=== PATIENT | female | born 1950 | race Caucasian/White ===

== ENCOUNTER → 2018-02-01 | Outpatient (CLI) | payer MEDICARE, OTHER | LOC: M WHC 09:51 | DX: Z12.31 Encounter for screening mammogram for malignant neoplasm of breast (principal); R92.8 Other abnormal and inconclusive findings on diagnostic imaging of breast; Z78.0 Asymptomatic menopausal state; Z85.3 Personal history of malignant neoplasm of breast; Z98.890 Other specified postprocedural states; Z92.3 Personal history of irradiation | CPT/HCPCS: 77067 ==

== ENCOUNTER → 2018-02-01 | Outpatient (REF) | payer MEDICARE, OTHER ==
[2018-02-03 14:09] LABS: HPV HYBRID CAPTURE II Negative (Negative)
== END ==
LOC: M SFHCWAGY 09:54
DX: Z12.4 Encounter for screening for malignant neoplasm of cervix (principal)
CPT/HCPCS: G0123

== ENCOUNTER 2018-05-25 08:44 | Day surgery (SDC) | payer MEDICARE, OTHER ==
[2018-05-25] MEDS: NS 1,000 ML IV (09:14)
[2018-05-25] MEDS ORDERED: LIDOCAINE 2% INJ 100 MG/5 ML SDV (FOR ANES.) As Ordered (09:17)
[2018-05-25] MEDS ORDERED: PROPOFOL 200 MG/20 ML VIAL As Ordered ×2 (09:29→09:52)
== END 2018-05-25 10:20 | disposition home or self-care (01) ==
LOC: M OPP 08:44
DX: Z12.11 Encounter for screening for malignant neoplasm of colon (principal); K57.30 Diverticulosis of large intestine without perforation or abscess without bleeding; Z85.3 Personal history of malignant neoplasm of breast; Z92.3 Personal history of irradiation
CPT/HCPCS: G0121

== ENCOUNTER → 2019-02-19 | Outpatient (CLI) | payer MEDICARE, OTHER ==
[~2019-02-19] MED LIST: MULTCAP8 PO
--- NOTE | 2019-02-19 15:28 | REPMRS ---
Patient History The patient states she had a clinical breast exam in 02/2019. Patient is postmenopausal, has history of cancer in the right breast at age 51, and had previous chest radiation therapy at age 51. No known family history of cancer. Malignant excisional biopsy of the right breast, 2001. Radiation therapy of the right breast, 2001. No Hormone Replacement Therapy 3D TOMOSYNTHESIS WAS PERFORMED. Digital Woman Screen Mammo: February 19, 2019 - Exam #: [id number] Bilateral CC and MLO view(s) were taken. Technologist: Tosha Rivas, Technologist Prior study comparison: February 01, 2018, digital woman screen mammo performed at [facility]. June 20, 2012, digital woman screen mammo performed at [facility]. FINDINGS: The breast tissue is heterogeneously dense. This may lower the sensitivity of mammography. There has been no change in the appearance of the mammogram from the prior studies. There is a moderate amount of residual fibroglandular tissue which is fairly symmetric. There is no interval development of dominant mass, areas of architectural distortion, or clustered microcalcification typical of malignancy. Assessment: BI-RADS/ACR category 1 mammogram. Negative Mammogram. Recommendation Routine screening mammogram in 1 year (for women over age 40). This mammogram was interpreted with the aid of an FDA-approved computer-aided dectection system. Electronically Signed By: Sarthak Alvarado MD 02/19/19 1523
== END ==
LOC: M WHC 11:58
PROVIDERS: ATTEND Nurse Practitioner Women's Health
DX: Z12.31 Encounter for screening mammogram for malignant neoplasm of breast (principal); Z78.0 Asymptomatic menopausal state; Z92.3 Personal history of irradiation; Z85.3 Personal history of malignant neoplasm of breast
CPT/HCPCS: 77063; 77067; G0463

== ENCOUNTER → 2020-02-21 | Outpatient (REF) | payer MEDICARE, OTHER | LOC: M SFHCWAGY 17:57 | PROVIDERS: ATTEND Nurse Practitioner Women's Health | DX: Z12.4 Encounter for screening for malignant neoplasm of cervix (principal); N95.8 Other specified menopausal and perimenopausal disorders ==

== ENCOUNTER → 2020-02-21 | Outpatient (CLI) | payer MEDICARE, OTHER ==
--- NOTE | 2020-02-21 13:31 | REPMRS ---
Patient History The patient states she had a clinical breast exam in February 2020. No known family history of cancer. Malignant excisional biopsy of the right breast, 2001. Radiation therapy of the right breast, 2001. No Hormone Replacement Therapy Digital Woman Screen Mammo: February 21, 2020 - Exam #: [id number] Bilateral CC and MLO view(s) were taken. Technologist: Karolyn Maxwell, Technologist Prior study comparison: February 19, 2019, bilateral digital woman screen mammo performed at [facility]. February 01, 2018, digital woman screen mammo performed at [facility]. June 20, 2012, digital woman screen mammo performed at [facility]. FINDINGS: The breast tissue is heterogeneously dense. This may lower the sensitivity of mammography. The Volpara volumetric breast density category is: C. Stable post-treatment changes are again noted on the right. There is a moderate amount of heterogeneously dense fibroglandular tissue which is fairly symmetric. There is no interval development of dominant mass, architectural distortion, or grouped microcalcification typical of malignancy. There has been no change in the appearance of the mammogram from the prior studies. 3-D tomosynthesis shows no additional findings. Assessment: BI-RADS/ACR category 2 mammogram. Benign Findings. Recommendation Routine screening mammogram of both breasts in 1 year (for women over age 40). This mammogram was interpreted with the aid of an FDA-approved computer-aided dectection system. Electronically Signed By: Bruno Elizondo MD 02/21/20 8757
== END ==
LOC: M WHC 11:12
PROVIDERS: ATTEND Nurse Practitioner Women's Health
DX: Z01.419 Encounter for gynecological examination (general) (routine) without abnormal findings (principal); Z12.31 Encounter for screening mammogram for malignant neoplasm of breast; Z85.3 Personal history of malignant neoplasm of breast; Z92.3 Personal history of irradiation
CPT/HCPCS: 77063; 77067; G0101; G0123

== ENCOUNTER → 2021-03-01 | Outpatient (CLI) | payer MEDICARE, OTHER ==
--- NOTE | 2021-03-01 17:07 | REPMRS ---
Patient History The patient states she had a clinical breast exam on 03-01-2021. No known family history of cancer. Malignant excisional biopsy of the right breast, 2001. Radiation therapy of the right breast, 2001. No Hormone Replacement Therapy Patient states no breast complaints today. Patient has signed MRS History Sheet. Digital Woman Screen Mammo: March 01, 2021 - Exam #: [id number] Bilateral CC and MLO view(s) were taken. Technologist: Alejandra Serrato, Railroader Prior study comparison: February 21, 2020, bilateral digital woman screen mammo performed at [facility]. February 19, 2019, bilateral digital woman screen mammo performed at [facility]. February 01, 2018, digital woman screen mammo performed at [facility]. FINDINGS: The breast tissue is heterogeneously dense. This may lower the sensitivity of mammography. The Volpara volumetric breast density category is: C. There are stable post treatment changes in the right breast unchanged. There is a moderate amount of heterogeneously dense fibroglandular tissue which is fairly symmetric. There is no interval development of dominant mass, architectural distortion, or grouped microcalcification typical of malignancy. There has been no change in the appearance of the mammogram from the prior studies. 3-D tomosynthesis shows no additional findings. Assessment: BI-RADS/ACR category 2 mammogram. Benign Findings. Recommendation Routine screening mammogram of both breasts in 1 year (for women over age 40). This mammogram was interpreted with the aid of an FDA-approved computer-aided dectection system. Electronically Signed By: Bruno Elizondo MD 03/01/21 5015
== END ==
LOC: M WHC 15:58
PROVIDERS: ATTEND Nurse Practitioner Women's Health
DX: Z01.419 Encounter for gynecological examination (general) (routine) without abnormal findings (principal); Z12.31 Encounter for screening mammogram for malignant neoplasm of breast; Z85.3 Personal history of malignant neoplasm of breast; Z92.3 Personal history of irradiation
CPT/HCPCS: 77063; 77067; G0101

== ENCOUNTER → 2021-03-24 | Outpatient (CLI) | payer MEDICARE ==
--- NOTE | 2021-03-25 06:16 | REP ---
INDICATION: N83.8 OVARIAN ENLARGEMENT,RIGHT COMPARISON: None. TECHNIQUE: Transabdominal pelvic ultrasound followed by transvaginal examination for better evaluation of the endometrium and adnexa with color Doppler evaluation of the ovaries. FINDINGS: Bladder is unremarkable and measures 4.5 x 5.4 x 5.6 cm. Normal anteverted uterus measures 5.5 x 2.2 x 3.2 cm. The endometrial complex measures 2.8 mm thickness excluding a small amount of endocervical fluid. Left ovary is not visualized. The right ovary measures 9.1 x 5.8 x 5.5 cm (RI 0.51) and includes a complex heterogeneous lesion measuring 9.1 x 4.5 x 5.4 cm with presumed internal calcification and cystic components raising the possibility of teratoma. IMPRESSION: 1. Essentially normal uterus. 2. Left ovary not visualized. 3. Complex lesion in the right ovary up to 9.1 cm may represent complex cyst or teratoma. Consider follow-up examination in 4-6 weeks and or contrast-enhanced CT of the abdomen and pelvis for further investigation. <Electronically signed by Brandan Molina > 03/25/21 0618
== END ==
LOC: M WHC 07:24
PROVIDERS: ATTEND Nurse Practitioner Women's Health
DX: N83.8 Other noninflammatory disorders of ovary, fallopian tube and broad ligament (principal)

== ENCOUNTER → 2021-04-05 | Outpatient (REF) | payer MEDICARE, OTHER | LOC: M PLALAB 10:13 | PROVIDERS: ATTEND Nurse Practitioner Women's Health | DX: N83.201 Unspecified ovarian cyst, right side (principal) ==

== ENCOUNTER → 2021-05-21 | Outpatient (CLI) | payer MEDICARE, OTHER ==
[~2021-05-21] MED LIST changes: +MULTCHW14 PO
[2021-05-21 16:55] LABS: BASO % 0.6 % (0.0-1.0); EOS # 0.1 10^3/uL (0.0-0.5); EOS % 2.3 % (0.0-3.0); HEMATOCRIT 43.2 % (36.0-47.0); LYMPH # 1.5 10^3/uL (1.5-5.0); LYMPH % 32.1 % (24.0-44.0); MEAN CORPUSCULAR HEMOGLOBIN 31.8 pg (27.0-33.0); MEAN CORPUSCULAR HGB CONC 32.4 g/dl (32.0-36.5); MEAN CORPUSCULAR VOLUME 98.2 fl (80.0-96.0); MONO # 0.5 10^3/uL (0.0-0.8); MONO % 9.9 % (2.0-8.0); NEUTROPHILS # 2.6 10^3/uL (1.5-8.5); NEUTROPHILS % 54.7 % (36.0-66.0); PLATELET COUNT, AUTOMATED 103 10^3/uL (150-450); WHITE BLOOD COUNT 4.7 10^3/uL (4.0-10.0)
[2021-05-21 17:23] LABS: HEMOGLOBIN A1c 5.2 %
[2021-05-21 17:35] LABS: ALBUMIN 3.8 GM/DL (3.2-5.2); ALT/SGPT 113 U/L (12-78); BILIRUBIN,TOTAL 0.5 MG/DL (0.2-1.0); BLOOD UREA NITROGEN 13 MG/DL (7-18); CALCIUM LEVEL 8.9 MG/DL (8.8-10.2); CARBON DIOXIDE LEVEL 28 MEQ/L (21-32); CHLORIDE LEVEL 107 MEQ/L (98-107); CHOLESTEROL LEVEL 155 MG/DL (<200); CREATININE FOR GFR 0.77 MG/DL (0.55-1.30); GLOMERULAR FILTRATION RATE > 60.0 (>45); GLUCOSE, FASTING 92 MG/DL (70-100); HDL CHOLESTEROL 62 MG/DL (>40); LDL CHOLESTEROL 77 MG/DL (<100); NON-HDL-C 93 MG/DL; POTASSIUM SERUM 5.2 MEQ/L (3.5-5.1); SODIUM LEVEL 139 MEQ/L (136-145); THYROID STIMULATING HORMONE 0.514 uIU/ML (0.358-3.740); TOTAL PROTEIN 7.9 GM/DL (6.4-8.2); TRIGLYCERIDES LEVEL 81 MG/DL (<150)
== END ==
LOC: M PLALAB 14:48
PROVIDERS: ATTEND Family Medicine
DX: N83.209 Unspecified ovarian cyst, unspecified side (principal); Z13.220 Encounter for screening for lipoid disorders; Z13.228 Encounter for screening for other metabolic disorders; Z79.899 Other long term (current) drug therapy

== ENCOUNTER → 2021-05-24 | Outpatient (CLI) | payer MEDICARE, OTHER ==
[~2021-05-24] MED LIST changes: +OXYC1TAB23 PO
[2021-05-24 14:32] LABS: PROTHROMBIN TIME 13.6 SECONDS (12.7-14.5)
[2021-05-24 14:33] LABS: PARTIAL THROMBOPLASTIN TIME 30.4 SECONDS (25.9-37.0)
[2021-05-24 14:54] LABS: ALBUMIN 3.9 GM/DL (3.2-5.2); ALT/SGPT 112 U/L (12-78); BILIRUBIN,DIRECT 0.2 MG/DL (0.0-0.2); BILIRUBIN,TOTAL 0.6 MG/DL (0.2-1.0); CHOLESTEROL LEVEL 156 MG/DL (<200); CHOLESTEROL RISK RATIO 2.476 (<5); HDL CHOLESTEROL 63 MG/DL (>40); LDL CHOLESTEROL 72 MG/DL (<100); NON-HDL-C 93 MG/DL; TOTAL PROTEIN 7.9 GM/DL (6.4-8.2); TRIGLYCERIDES LEVEL 106 MG/DL (<150)
[2021-05-24 15:08] LABS: VITAMIN B12 LEVEL 542 PG/ML (247-911)
[2021-05-24 15:50] LABS: HEPATITIS C VIRUS ABY INDEX > 11.0 INDEX (<0.8)
[2021-05-25 12:03] LABS: ALBUMIN 4.18 GM/DL (3.29-5.55); ALBUMIN % 52.9 % (55.8-66.1); ALPHA-1-GLOBULIN % 3.5 % (2.9-4.9); BETA-1-GLOBULINS % 6.3 % (4.7-7.2); GAMMA GLOBULIN % 21.3 % (11.1-18.8)
[2021-05-25 12:04] LABS: ALPHA-1-GLOBULINS 0.28 GM/DL (0.17-0.41); ALPHA-2-GLOBULINS 0.95 GM/DL (0.42-0.99); BETA-2-GLOBULINS 0.32 GM/DL (0.19-0.55); GAMMA GLOBULINS 1.68 GM/DL (0.65-1.58)
[2021-05-27 20:16] LABS: ANA (HEP2) Negative (.)
== END ==
LOC: M PLALAB 11:20
PROVIDERS: ATTEND Family Medicine
DX: R74.01 Elevation of levels of liver transaminase levels (principal)

== ENCOUNTER → 2021-05-26 | Outpatient (CLI) | payer MEDICARE, OTHER ==
[~2021-05-26] MED LIST changes: -OXYC1TAB23 PO
== END ==
LOC: M LABSMTC 10:51
PROVIDERS: ATTEND Anesthesiology
DX: Z01.812 Encounter for preprocedural laboratory examination (principal); Z20.822 Contact with and (suspected) exposure to COVID-19

== ENCOUNTER 2021-05-31 06:15 | Day surgery (SDC) | payer MEDICARE ==
[~2021-05-31] VITALS: Ht 165.1 cm; Wt 68.5 kg
[~2021-05-31 06:15] MED LIST changes: +EMLA CREAM 5GM TUBE (LIDOCAINE/PRILOCAINE) TOP PRN; +LIDOCAINE 1% MDV 20ML VIAL SQ PRN; +LR 1,000 ML IV ONE
[2021-05-31 06:55] LABS: HEMATOCRIT 44.6 % (36.0-47.0); HEMOGLOBIN 14.3 g/dl (12.0-15.5); MEAN CORPUSCULAR HEMOGLOBIN 31.4 pg (27.0-33.0); MEAN CORPUSCULAR HGB CONC 32.1 g/dl (32.0-36.5); RED BLOOD COUNT 4.55 10^6/uL (4.00-5.40); WHITE BLOOD COUNT 4.4 10^3/uL (4.0-10.0)
[2021-05-31] MEDS ORDERED: MIDAZOLAM INJ 2MG/2ML VIAL (J2250 PER 1MG) As Ordered ONE (06:59)
[2021-05-31] MEDS ORDERED: fentaNYL 100 MCG/2 ML INJECTION (J3010) As Ordered ONE ×2 (07:01→08:59)
[2021-05-31] MEDS ORDERED: LIDOCAINE 2% 100MG/5ML SDV (FOR ANES.) As Ordered ONE (07:02)
[2021-05-31] MEDS ORDERED: ROCURONIUM BROMIDE 50 MG/5 ML VIAL As Ordered ONE (07:02)
[2021-05-31 07:12] LABS: PLATELET COUNT, AUTOMATED 96 10^3/uL (150-450)
[2021-05-31] MEDS ORDERED: BUPIVACAINE HCL 0.25% 30ML VIAL As Ordered ONE (07:14)
[2021-05-31] MEDS ORDERED: ePHEDrine SULFATE 25 MG/5 ML(5MG/ML) SYRINGE As Ordered ONE (07:55)
[2021-05-31] MEDS ORDERED: dexameTHASONE 4 MG/ML 1ML VIAL (J1100 PER 1MG) As Ordered ONE (07:58)
[2021-05-31] MEDS ORDERED: ACETAMINOPHEN 1000MG 100ML IV BTL (OFIRMEV) (J0131 PER 10MG) As Ordered ONE (08:01)
[2021-05-31] MEDS ORDERED: METOCLOPRAMIDE INJ 10MG/2ML VIAL (J2765 PER 1) As Ordered ONE (08:01)
[2021-05-31] MEDS ORDERED: ONDANSETRON 4MG/2ML VIAL As Ordered ONE (08:03)
[2021-05-31] MEDS ORDERED: KETOROLAC 60MG 2ML VIAL As Ordered ONE (08:03)
[2021-05-31] MEDS ORDERED: SUGAMMADEX SODIUM 500 MG/5 ML VIAL (BRIDION) As Ordered ONE (08:03)
[2021-05-31] MEDS ORDERED: GLYCOPYRROLATE INJ 0.2 MG/ML 2 ML VIAL As Ordered ONE (08:17)
[2021-05-31] MEDS ORDERED: LR 1,000 ML IV SCH (09:30)
[2021-05-31] MEDS ORDERED: fentaNYL 100 MCG/2 ML INJECTION (J3010) IV PRN (09:30)
[2021-05-31] MEDS ORDERED: HYDROMORPHONE HCL 0.5 MG/ 0.5 ML SYRINGE (J1170 PER 1) IV PRN (09:30)
[2021-05-31] MEDS ORDERED: ONDANSETRON 4MG/2ML VIAL IV PRN (09:30)
[2021-05-31] MEDS ORDERED: PERCOCET 5MG/325MG TAB PO PRN (09:30)
[2021-05-31] MEDS ORDERED: METOCLOPRAMIDE INJ 10MG/2ML VIAL (J2765 PER 1) IV PRN (09:30)
[2021-05-31] MEDS ORDERED: propofoL 200 MG/20 ML VIAL As Ordered ONE (10:58)
--- NOTE | 2021-05-31 11:05 | ROOPDOC ---
[facility] Report Of Operation Report of Operation DATE OF PROCEDURE: 05/31/21 PREPROCEDURE DIAGNOSES: Right-sided complex cystic adnexal mass POSTPROCEDURE DIAGNOSES: Right-sided intestinal mass. PROCEDURE PERFORMED: Diagnostic laparoscopy. SURGEON: Miguel Florez DO FACOG INTRAOPERATIVE ADVENTURE GUIDE: Dr. Chun Alfonso MD (General Surgery) ANESTHESIA: GETA ESTIMATED BLOOD LOSS: Approximately 10 mL. COMPLICATIONS: none FINDINGS: Right-sided intestinal mass involving cecum and terminal ileum with moderate mobility. Appendix not well visualized. Mild pericolic gutter adhesions along the right side. 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 Normal-appearing uterus and bilateral ovaries and fallopian tubes; typical postmenopausal appearance. Falope-Rings noted on each fallopian tube indicating previous sterilization procedure. No significant adhesions on/around CHOCOLATE FINISHER organs. SPECIMENS: none PREOPERATIVE ANTIBIOTICS: none BACKGROUND: Thalia is a pleasant 70-year-old . Earlier this summer, during an annual gynecologic examination, she was found to have a palpable right-sided adnexal/pelvic mass. This prompted imaging via pelvic ultrasound, and this revealed evidence of a complex cystic mass thought to be originating from the right adnexa/ovary. A DELMIS score was calculated to be low risk for ovarian malignancy; CA-125 5.5. After extensive discussions regarding management options, we decided to proceed with a robotic-assisted laparoscopic right salpingo-oophorectomy. However, upon laparoscopic survey today, the right-sided mass was discovered to be originating from the bowel (involving the terminal ileum and cecum). Dr. Alfonso of General Surgery was consulted. Per his guidance, the decision was made to hold on any further operation today. He recommended additional imaging CT C/A/P and colonoscopy prior to ultimately proceeding with surgical resection of this mass. Of note, this patient had an apparently normal colonoscopy approximately 2 years ago. PROCEDURE: Patient was brought to the operating room with an IV running. She was placed in the dorsal supine position. General anesthesia was administered and the airway was secured without any difficulty. She was placed in the low lithotomy position. She was prepared and draped in normal sterile fashion. A timeout was performed per protocol. Briones catheter was placed under sterile conditions. A sterile speculum was placed with good visualization of the cervix. The cervix was grasped with a single-tooth tenaculum and downward traction was applied. A sponge stick was placed in the posterior fornix. These 2 instruments were tied together with a Ray-Louis sponge for the purpose of uterine manipulation. A sterile glove switch was performed, and attention was turned to the abdomen. An 8 mm supra-umbilical incision was made with the 11 blade. Through this incision a Veress needle was placed into the intraperitoneal cavity. Intraperitoneal placement was confirmed with use of flow of normal saline negative return on aspiration and a positive drop test. Opening pressure was 5 mmHg. The abdomen was insufflated. The Veress needle was removed. The 8 mm laparoscopic cannula/sheath was inserted into the intraperitoneal cavity under direct laparoscopic visualization. No incidental bleeding or injury was noted. The patient was placed in steep Trendelenburg. An additional laparoscopic port site was placed in the lower left abdomen through an 8 mm incision under l aparoscopic guidance. The abdominopelvic anatomy was inspected. See FINDINGS above. Given the discovery of an intestinal mass, the decision was made to conclude the procedure. She will be following up with Dr. Alfonso in the very near future. The patient was taken out of Trendelenburg and the gas was released from the abdomen. The cannulas were removed. The incisions were c losed with 4-0 Monocryl in subcuticular fashion and dressings were applied. All instruments were removed from the vagina and the Briones catheter was removed. Sponge, needle, and instrument counts were correct. The patient tolerated the entire procedure very well, and she was transferred to the PACU in good/stable condition. DO LEXI Carrero JONATHAN R. DO May 31, 2021 11:05
[2021-05-31] MEDS ORDERED: OXYC1TAB23 PO (11:27)
[2021-05-31 11:42] VITALS: BP 135/65
== END 2021-05-31 12:02 | disposition home or self-care (01) ==
LOC: M SDC 06:15
PROVIDERS: ATTEND Obstetrics & Gynecology
DX: R19.09 Other intra-abdominal and pelvic swelling, mass and lump (principal); K76.89 Other specified diseases of liver; Z85.3 Personal history of malignant neoplasm of breast; Z92.3 Personal history of irradiation; E55.9 Vitamin D deficiency, unspecified; M81.0 Age-related osteoporosis without current pathological fracture
CPT/HCPCS: 36415; 58661; 85027; 85049; 85055; 86850; 86900; 86901; J0131; J1100; J2250; J2405; J2765; J3010

== ENCOUNTER → 2021-06-04 | Outpatient (CLI) | payer MEDICARE ==
[~2021-06-04] MED LIST changes: -EMLA CREAM 5GM TUBE (LIDOCAINE/PRILOCAINE) TOP PRN; +GASTROGRAFIN SOLUTION 30ML (Q9963) ONE; +ISOVUE-370 76% 100ML VIAL ONE; -LIDOCAINE 1% MDV 20ML VIAL SQ PRN; -LR 1,000 ML IV ONE; +OXYC1TAB23 PO
--- NOTE | 2021-06-06 11:25 | REP ---
INDICATION: COLON MASSES. COMPARISON: None. TECHNIQUE: Axial pre and postcontrast images from the thoracic inlet to the upper abdomen with coronal and sagittal reformations using 75 cc Isovue 370 intravenous contrast material. FINDINGS: The lung barreto demonstrate scattered age-related interstitial changes. Subtle reticulonodular changes are identified along the subpleural right upper lobe and within the right middle lobe which are likely chronic and related to prior radiation therapy for prior right breast mass. No acute consolidation, further suspicious nodule or mass lesion identified. No effusion. No pneumothorax. Tracheobronchial tree is patent. Mediastinum demonstrates mild atherosclerotic changes to the thoracic aorta without aortic aneurysm or dissection. No cardiomegaly or pericardial effusion. Pulmonary vasculature appears normal. No obvious adenopathy. Evidence for prior right axillary node dissection. Osseous structures are relatively normal with 2 cm hemangioma at T11. IMPRESSION: 1. Subtle changes along the anterior margin of the right upper lobe and within the right middle lobe right leak chronic and related to prior right breast radiation therapy. 2. No acute pleuroparenchymal or mediastinal process appreciated. No obvious evidence for metastatic disease. <Electronically signed by Brandan Molina > 06/06/21 1125
--- NOTE | 2021-06-06 11:50 | REP ---
INDICATION: COLON MASSES. COMPARISON: None TECHNIQUE: Axial precontrast and contrast-enhanced images from the lung bases to the pubic symphysis using 100 cc Isovue 370 intravenous contrast material followed by delayed images of the abdomen. Oral contrast was administered prior to imaging. Coronal and sagittal reformations obtained. This CT examination was performed using the following dose reduction techniques: Automated exposure control, adjustment of mA and/or kv according to the patient's size, and the use of iterative reconstruction technique. FINDINGS: Upper to mid abdomen demonstrates normal liver, spleen, pancreas, gallbladder, bilateral adrenal glands and kidneys. Subtle scattered epigastric and upper retroperitoneal periaortic lymph nodes up to 11 mm are identified and nonspecific. Evaluation of the enteric system demonstrates no obstruction or acute inflammatory process. Colonic and significant sigmoid diverticulosis is appreciated a normal terminal ileum and ileocecal valve are identified in the right lower quadrant. There is a complex 9.3 x 5.0 x 4.5 cm predominately cystic lesion in the right lower quadrant which is abutting the cecum as well as the right uterine fundus and includes septations as well as somewhat curvilinear and primarily peripheral elements of high density material which may reflect partial mural calcification, but is similar in density to oral contrast. As such, differential diagnosis would include complex ovarian cystic lesion versus appendiceal mucocele. Pelvis demonstrates normal bladder and age-appropriate uterus/left adnexa. No pelvic fluid or obvious pelvic adenopathy. No ascites. No free air. Abdominal aorta and vasculature appear normal. Musculoskeletal structures are intact and without acute osseous abnormality. IMPRESSION: 1. Complex large cystic lesion in the right lower quadrant adjacent to and essentially inseparable from the cecum as well as the right fundal portion of the uterus. Lesion contains presumed peripheral calcification, but density cannot be differentiated from possible intraluminal oral contrast which was administered prior to imaging. As such, differential diagnosis includes complex right ovarian cystic mass and less likely appendiceal mucocele (as per the given history of possible colonic mass). No prior examinations are available for comparison. Consider noncontrast CT of the pelvis in approximately 7-10 days to allow for complete clearance of oral contrast material. 2. Few upper abdominal and periaortic lymph nodes measuring up to 11 mm are nonspecific. 3. No further acute abdominopelvic pathology appreciated. No ascites. No significant lower abdominal or pelvic adenopathy. <Electronically signed by Brandan Molina > 06/06/21 [id number]
== END ==
LOC: M PLAIMG 11:54
PROVIDERS: ATTEND Obstetrics & Gynecology
DX: R93.5 Abnormal findings on diagnostic imaging of other abdominal regions, including retroperitoneum (principal); K63.89 Other specified diseases of intestine
CPT/HCPCS: 71270; 74178; Q9963; Q9967

== ENCOUNTER → 2021-06-09 | Outpatient (CLI) | payer MEDICARE ==
[~2021-06-09] MED LIST changes: -GASTROGRAFIN SOLUTION 30ML (Q9963) ONE; -ISOVUE-370 76% 100ML VIAL ONE
== END ==
LOC: M PLALAB 09:32
PROVIDERS: ATTEND Family Medicine
DX: R76.8 Other specified abnormal immunological findings in serum (principal)

== ENCOUNTER → 2021-06-11 | Outpatient (CLI) | payer MEDICARE ==
--- NOTE | 2021-06-11 09:25 | REP ---
INDICATION: HEP C COMPARISON: None. TECHNIQUE: Real time calloway scale ultrasound examination using curved array transducer. FINDINGS: Liver is heterogeneous and measures 17 cm in craniocaudal length without focal hepatic lesion identified. Pancreas is incompletely evaluated due to interposed bowel gas. The gallbladder is normal and without gallstones, wall thickening, or pericholecystic fluid. No biliary ductal dilatation is appreciated and the common bile duct measures 4.0 mm diameter. Right kidney is normal in reniform shape without hydronephrosis and measures 10.9 x 5.1 x 4.3 cm. No ascites in the visualized right upper quadrant. IMPRESSION: No obvious focal abnormality. Underlying hepatocellular disease cannot be excluded. <Electronically signed by Brandan Molina > 06/11/21 2192
== END ==
LOC: M RAD 08:46
PROVIDERS: ATTEND Family Medicine
DX: R76.8 Other specified abnormal immunological findings in serum (principal)

== ENCOUNTER → 2021-06-15 | Outpatient (CLI) | payer MEDICARE, OTHER ==
[~2021-06-15] MED LIST changes: +FLAG500T PO
[2021-06-15 15:48] LABS: HEMATOCRIT 42.4 % (36.0-47.0); HEMOGLOBIN 13.9 g/dl (12.0-15.5); MEAN CORPUSCULAR HGB CONC 32.8 g/dl (32.0-36.5); MEAN CORPUSCULAR VOLUME 97.5 fl (80.0-96.0); PLATELET COUNT, AUTOMATED 102 10^3/uL (150-450); RED BLOOD COUNT 4.35 10^6/uL (4.00-5.40); WHITE BLOOD COUNT 4.7 10^3/uL (4.0-10.0)
[2021-06-15 16:08] LABS: ALBUMIN 3.8 GM/DL (3.2-5.2); ALT/SGPT 237 U/L (12-78); BILIRUBIN,TOTAL 0.5 MG/DL (0.2-1.0); BLOOD UREA NITROGEN 11 MG/DL (7-18); CALCIUM LEVEL 9.6 MG/DL (8.8-10.2); CARBON DIOXIDE LEVEL 29 MEQ/L (21-32); CHLORIDE LEVEL 109 MEQ/L (98-107); CREATININE FOR GFR 0.73 MG/DL (0.55-1.30); GLOMERULAR FILTRATION RATE > 60.0 (>45); GLUCOSE, FASTING 84 MG/DL (70-100); POTASSIUM SERUM 5.2 MEQ/L (3.5-5.1); SODIUM LEVEL 140 MEQ/L (136-145); TOTAL PROTEIN 7.8 GM/DL (6.4-8.2)
== END ==
LOC: M PLALAB 13:57
PROVIDERS: ATTEND Family Medicine
DX: Z01.818 Encounter for other preprocedural examination (principal); K62.89 Other specified diseases of anus and rectum
CPT/HCPCS: 36415; 80053; 85027; G0463

== ENCOUNTER → 2021-06-23 | Outpatient (CLI) | payer MEDICARE ==
[~2021-06-23] MED LIST changes: -FLAG500T PO
== END ==
LOC: M LABSMTC 10:58
PROVIDERS: ATTEND Anesthesiology
DX: Z01.818 Encounter for other preprocedural examination (principal); Z11.52 Encounter for screening for COVID-19

== ENCOUNTER 2021-06-25 06:55 | Inpatient (IN) | payer MEDICARE ==
--- NOTE | 2021-06-24 12:35 | HPE ---
HISTORY AND PHYSICAL DATE OF ADMISSION: 06/25/2021 CHIEF COMPLAINT: Right colon mass/cecal mass. BRIEF HISTORY OF PRESENT ILLNESS: The patient is a 70-year-old female who on evaluation by EMPLOYEE SERVICE OFFICER found a cystic lesion palpable in the right side of the abdomen, underwent diagnostic laparoscopy with plans for an oophorectomy, however this was not involving the ovary, this was involving the cecum/appendix and the distal ileum. The patient was referred to my office for removal of this. In addition, on workup for her preoperative evaluation for her laparoscopy, she was found to have hepatitis C and evidence of cirrhosis without evidence of portal hypertension, no evidence of ascites. PAST MEDICAL HISTORY: Her past medical history is significant for a history of breast cancer, history of lumpectomy, history of diagnostic laparoscopy. MEDICATIONS: None. PHYSICAL EXAMINATION: A 70-year-old female who looks stated age. HEENT is unremarkable. Neck is supple without adenopathy. Lungs are clear to auscultation. Heart is regular. Abdomen is soft, nondistended and nontender but I do feel the palpable mass in the right lower quadrant/suprapubic area with deep palpation. IMPRESSION/PLAN: Patient has a lesion that is on the cecum/appendiceal base involving the terminal ileum, it is involving all of these structures in this area. It is hard to tell what it is, it is relatively significant differential including benign versus malignant etiologies but at this point given its presentation, its adherence to the terminal ileum and cecum I would recommend that that the patient undergo a laparoscopic right colectomy. The risks as well as benefits have been discussed with the patient at length, those including but not limited to infection, bleeding, damage to surrounding structures including bowel, bladder, nerves, vessels, kidney, ureter, duodenum and possible need for ostomy as well as possible anastomotic leak. The patient will be given p.o. as well as IV antibiotics preoperatively, bowel prep and will most likely need hospitalization postoperatively for 2-3 days depending on her overall status.
[~2021-06-25] VITALS: Ht 165.1 cm; Wt 70.2 kg
[2021-06-25] VITALS (8 sets, daily range): BP systolic 136–154; BP diastolic 71–84; O2SAT 97
[~2021-06-25 06:55] MED LIST changes: +ceFAZolin SOD 2 GM in IV 1 EA IV ONE
[2021-06-25] MEDS ORDERED: FLAG500T PO (07:39)
[2021-06-25] MEDS ORDERED: ROCURONIUM BROMIDE 50 MG/5 ML VIAL As Ordered ONE (08:20)
[2021-06-25] MEDS ORDERED: propofoL 200 MG/20 ML VIAL As Ordered ONE (08:20)
[2021-06-25] MEDS ORDERED: LIDOCAINE 2% 100MG/5ML SDV (FOR ANES.) As Ordered ONE (08:20)
[2021-06-25] MEDS ORDERED: fentaNYL 100 MCG/2 ML INJECTION (J3010) As Ordered ONE (08:21)
[2021-06-25] MEDS ORDERED: MIDAZOLAM INJ 2MG/2ML VIAL (J2250 PER 1MG) As Ordered ONE (08:21)
[2021-06-25] MEDS ORDERED: LR 1,000 ML IV ONE (08:35)
[2021-06-25] MEDS ORDERED: KETOROLAC 60MG 2ML VIAL As Ordered ONE (08:55)
[2021-06-25] MEDS ORDERED: ONDANSETRON 4MG/2ML VIAL As Ordered ONE (08:55)
[2021-06-25] MEDS ORDERED: SUGAMMADEX SODIUM 500 MG/5 ML VIAL (BRIDION) As Ordered ONE (08:55)
[2021-06-25] MEDS ORDERED: ACETAMINOPHEN 1000MG 100ML IV BTL (OFIRMEV) (J0131 PER 10MG) As Ordered ONE (08:55)
[2021-06-25] MEDS ORDERED: dexameTHASONE 4 MG/ML 1ML VIAL (J1100 PER 1MG) As Ordered ONE (08:55)
[2021-06-25] MEDS ORDERED: HYDROmorphone HCL 2 MG/ML 1ML VIAL As Ordered ONE (08:56)
[2021-06-25] MEDS: BUPIVACAINE/EPIN 0.25% 30 ML VIAL As Ordered ONE ×2 (10:59→11:10)
[2021-06-25] MEDS ORDERED: BUPIVACAINE LIPOSOME/PF 1.3% 20ML VIAL (13.3MG/ML)(EXPAREL)(C9290 PER1MG) As Ordered ONE (11:01)
[2021-06-25] MEDS ORDERED: BUPIVACAINE HCL 0.25% 30ML VIAL As Ordered ONE (11:01)
[2021-06-25] MEDS ORDERED: ONDANSETRON 4MG/2ML VIAL IV PRN ×2 (11:25→12:00)
[2021-06-25] MEDS ORDERED: MORPHINE 2 MG/ML 1ML VIAL (J2270) IV PRN ×2 (11:25)
[2021-06-25] MEDS ORDERED: NORCO, ANEXSIA 5/325MG TABLET (HYDROcodone/ACETAMINOPHEN) PO PRN ×2 (11:25)
[2021-06-25] MEDS ORDERED: LR 1,000 ML IV SCH (12:00)
[2021-06-25] MEDS ORDERED: PERCOCET 5MG/325MG TAB PO PRN (12:00)
[2021-06-25] MEDS ORDERED: METOCLOPRAMIDE INJ 10MG/2ML VIAL (J2765 PER 1) IV PRN (12:00)
[2021-06-25] MEDS ORDERED: fentaNYL 100 MCG/2 ML INJECTION (J3010) IV PRN (12:00)
[2021-06-25] MEDS: PANTOPRAZOLE 40MG VIAL (C9113 PER 1) IV SCH (12:49)
[2021-06-25] MEDS: NS 1,000 ML IV SCH ×2 (12:50→21:02)
[2021-06-25] MEDS ORDERED: cefTRIAXone SOD 1 GM in D5W MINI-BAG PLUS 50 ML IV ONE (15:00)
[2021-06-25] MEDS: KETOROLAC 30 MG/ML 1ML VIAL IV SCH ×2 (16:09→22:05)
[2021-06-25] MEDS: ALVIMOPAN 12 MG CAPSULE (ENTEREG) PO SCH (21:02)
[2021-06-26 02:00] VITALS: BP 116/61
[2021-06-26] MEDS: NS 1,000 ML IV SCH ×2 (03:25→12:35)
[2021-06-26] MEDS: KETOROLAC 30 MG/ML 1ML VIAL IV SCH ×4 (05:24→22:15)
[2021-06-26 06:00] VITALS: BP 146/74
[2021-06-26] MEDS: ALVIMOPAN 12 MG CAPSULE (ENTEREG) PO SCH ×2 (08:10→20:13)
[2021-06-26] MEDS: PANTOPRAZOLE 40MG VIAL (C9113 PER 1) IV SCH (08:10)
[2021-06-26 10:00] VITALS: BP 120/64
[2021-06-26 10:10] LABS: HEMATOCRIT 34.8 % (36.0-47.0); HEMOGLOBIN 11.4 g/dl (12.0-15.5); MEAN CORPUSCULAR HEMOGLOBIN 32.5 pg (27.0-33.0); MEAN CORPUSCULAR HGB CONC 32.8 g/dl (32.0-36.5); MEAN CORPUSCULAR VOLUME 99.1 fl (80.0-96.0); RED BLOOD COUNT 3.51 10^6/uL (4.00-5.40); WHITE BLOOD COUNT 6.9 10^3/uL (4.0-10.0)
[2021-06-26 10:32] LABS: ALBUMIN 2.7 GM/DL (3.2-5.2); ALT/SGPT 162 U/L (12-78); BILIRUBIN,TOTAL 0.5 MG/DL (0.2-1.0); BLOOD UREA NITROGEN 8 MG/DL (7-18); CALCIUM LEVEL 8.1 MG/DL (8.8-10.2); CARBON DIOXIDE LEVEL 27 MEQ/L (21-32); CHLORIDE LEVEL 111 MEQ/L (98-107); GLOMERULAR FILTRATION RATE > 60.0 (>45); GLUCOSE, FASTING 140 MG/DL (70-100); POTASSIUM SERUM 4.6 MEQ/L (3.5-5.1); SODIUM LEVEL 140 MEQ/L (136-145); TOTAL PROTEIN 6.1 GM/DL (6.4-8.2)
[2021-06-26 10:39] LABS: PLATELET COUNT, AUTOMATED 84 10^3/uL (150-450)
[2021-06-26 17:52] VITALS: BP 148/77
--- NOTE | 2021-06-26 19:11 | REP ---
INDICATION: abdominal distension. COMPARISON: CT 06/04/2021. TECHNIQUE: AP view abdomen and pelvis. FINDINGS: There is mild distension of the transverse colon. No dilated small bowel loops are seen. Metallic ana are seen overlying the abdomen and pelvis. There appears to be a surgical drain with the tip in the right upper quadrant. There are degenerative changes of the spine. IMPRESSION: Surgical drain tip right upper quadrant. Mildly distended air-filled transverse colon. No dilated small bowel loops. <Electronically signed by Sarthak Alvarado > 06/26/21 [id number]
[2021-06-26 22:00] VITALS: BP 144/74
[2021-06-27 02:00] VITALS: BP 143/74
[2021-06-27] MEDS: KETOROLAC 30 MG/ML 1ML VIAL IV SCH ×2 (04:10→11:52)
[2021-06-27 06:00] VITALS: BP 142/75
[2021-06-27 07:07] LABS: HEMATOCRIT 32.6 % (36.0-47.0); HEMOGLOBIN 10.7 g/dl (12.0-15.5); MEAN CORPUSCULAR HEMOGLOBIN 32.3 pg (27.0-33.0); MEAN CORPUSCULAR HGB CONC 32.8 g/dl (32.0-36.5); MEAN CORPUSCULAR VOLUME 98.5 fl (80.0-96.0); PLATELET COUNT, AUTOMATED 76 10^3/uL (150-450); RED BLOOD COUNT 3.31 10^6/uL (4.00-5.40); WHITE BLOOD COUNT 4.5 10^3/uL (4.0-10.0)
[2021-06-27 07:33] LABS: ALBUMIN 2.6 GM/DL (3.2-5.2); ALT/SGPT 128 U/L (12-78); BILIRUBIN,TOTAL 0.5 MG/DL (0.2-1.0); BLOOD UREA NITROGEN 8 MG/DL (7-18); CARBON DIOXIDE LEVEL 25 MEQ/L (21-32); CHLORIDE LEVEL 112 MEQ/L (98-107); CREATININE FOR GFR 0.48 MG/DL (0.55-1.30); GLOMERULAR FILTRATION RATE > 60.0 (>45); GLUCOSE, FASTING 89 MG/DL (70-100); POTASSIUM SERUM 3.7 MEQ/L (3.5-5.1); SODIUM LEVEL 141 MEQ/L (136-145); TOTAL PROTEIN 5.9 GM/DL (6.4-8.2)
[2021-06-27] MEDS: ALVIMOPAN 12 MG CAPSULE (ENTEREG) PO SCH ×2 (09:39→20:12)
[2021-06-27] MEDS: PANTOPRAZOLE 40MG VIAL (C9113 PER 1) IV SCH (09:39)
--- NOTE | 2021-06-27 09:39 | IPN ---
PROGRESS NOTE DATE: 06/26/2021 HISTORY: Patient is now postoperative day #1 from a laparoscopic right hemicolectomy for a mass involving the appendix and the proximal right colon. A drain was placed which comes out through a mid to left lower quadrant trocar site. She was started on some clear liquids last night. She reports she had some nausea last evening but this seems to have resolved. She has been taking some liquids today, particularly water. She reports some flatus but no bowel movement yet. Her Briones catheter was removed and she has voided without difficulty. VITAL SIGNS: Show that she has been afebrile since surgery. Her pulse is in the upper 70s to low 90s. Her blood pressure is fine and her room air oxygen saturation is normal. Intake and output show that yesterday she had 2100 mL recorded in with 1100 mL recorded out. She had 275 mL of drainage from her Janusz drain yesterday and had 500 mL reported to me early this afternoon. Her urine output has been excellent. PHYSICAL EXAMINATION: The patient is sitting up in the bed looking quite comfortable. She is alert and oriented. She denies any significant pain currently. Heart exam shows a regular rhythm of about 80. The lungs are clear. The abdomen is without significant distention. She does have some bowel sounds present. She has some dressings in the right upper quadrant and along the midline with the drain exiting the lower mid abdomen. The drain has perhaps 50 mL of quite bloody fluid in the container presently. Calves are nontender and there is no lower extremity edema. LABORATORY STUDIES: Today, show a white count of 7, hemoglobin 11, hematocrit 35, and a platelet count of 84,000. Her chemistry profile today shows a sodium of 140, potassium 4.6, chloride 111, CO2 of 27, BUN of 8, creatinine 0.6, and a glucose of 140. AST and ALT are mildly to moderately elevated at 109 and 162, respectively. IMPRESSION: Patient is doing well now postoperative day #1 from her laparoscopic right hemicolectomy. Dr. Alfonso did report to me that the appearance of her liver was consistent with some cirrhosis at the time of her surgery. Her platelet count is low at 84,000 today and she has been having some bloody fluid drainage from her lower abdominal drain. She has remained hemodynamically stable. PLAN: Patient will be advanced to a regular diet and her IV will be saline locked. She is encouraged to be up ambulating. We will closely monitor the output from her drain. If she shows evidence of persistent quite bloody fluid, it may be necessary to consider further evaluation or even platelet transfusion if her low platelet count is felt to be a significant cause for this. We await her pathology report. KEVEN
[2021-06-27 10:00] VITALS: BP 140/74
[2021-06-27 14:00] VITALS: BP 139/73
[2021-06-27] MEDS ORDERED: ACETAMINOPHEN TAB 650MG DOSE (2X325MG) PO PRN (16:55)
--- NOTE | 2021-06-27 17:56 | IPN ---
PROGRESS NOTE DATE: 06/27/2021 SUBJECTIVE: The patient is postoperative day 2, from a laparoscopic right hemicolectomy for a mass involving the cecum. Her pathology is pending. She reports that she is feeling much better today. She has had multiple small loose bowel movements without any blood. She reports that she is voiding well and having no nausea or vomiting. OBJECTIVE: Vital signs show that the patient has been afebrile over the past 24 hours. Her pulse is ranging between 77 and 94. Blood pressure is good. Her room air pulse oximetry is normal. Intake and output show that yesterday she had 1490 recorded in with 2500 mL out. She had 1900 mL of urine with 600 mL out of her abdominal drain. So far today, she has 190 mL recorded from her drain. PHYSICAL EXAMINATION: The patient is sitting upright having some lunch and is having a turkey sandwich, which she has just begun. She is alert and oriented. Heart examination shows a regular rhythm. The lungs are clear. The abdomen is flat to mildly protuberant. She has active bowel sounds present. Her drain exits the left lower abdomen and there is some bloody fluid in the suction bulb. This may be slightly less bloody than yesterday. There is some bruising around her midline incision, though part of this is obscured by her bandage. The abdomen is soft and without any undue tenderness. Laboratory studies today show a white count of 4, hemoglobin 11, hematocrit 33 and a platelet count of 76,000, which is down slightly from 84,000 yesterday. Chemistry profile today shows a sodium of 141, potassium 3.7, chloride 112, Co2 of 25, BUN of 8, creatinine 0.5 and glucose of 89. Liver function tests show slight elevations of the AST and ALT. The patient had an abdominal x-ray yesterday evening after the nurses reported that she was more distended than she had been earlier in the day. The examination showed a large amount of air within the transverse colon, but no other features of significance. IMPRESSION: The patient is doing well now two days postop from her right hemicolectomy. She has a resumption of some bowel function though this is still just small loose bowel movements. She is working on some solid food with a regular diet now. She has been voiding without difficulty. It appears that her drain is putting out smaller amounts though it is still bloody. PLAN: The patient was encouraged to be up ambulating and to take her diet as tolerated. We will follow her drain output for now. Her labs will be repeated in the morning to reassess her hematocrit and platelet count. Her pathology is still pending. MTDD
[2021-06-27 18:00] VITALS: BP 121/71
[2021-06-27 22:00] VITALS: BP 149/71
[2021-06-28 02:00] VITALS: BP 142/73
[2021-06-28 06:00] VITALS: BP 140/71
[2021-06-28 07:07] LABS: HEMATOCRIT 34.3 % (36.0-47.0); HEMOGLOBIN 11.2 g/dl (12.0-15.5); MEAN CORPUSCULAR HEMOGLOBIN 32.4 pg (27.0-33.0); MEAN CORPUSCULAR HGB CONC 32.7 g/dl (32.0-36.5); MEAN CORPUSCULAR VOLUME 99.1 fl (80.0-96.0); PLATELET COUNT, AUTOMATED 104 10^3/uL (150-450); RED BLOOD COUNT 3.46 10^6/uL (4.00-5.40); WHITE BLOOD COUNT 5.4 10^3/uL (4.0-10.0)
[2021-06-28 07:33] LABS: ALBUMIN 2.8 GM/DL (3.2-5.2); ALT/SGPT 125 U/L (12-78); BILIRUBIN,TOTAL 0.6 MG/DL (0.2-1.0); BLOOD UREA NITROGEN 12 MG/DL (7-18); CALCIUM LEVEL 8.4 MG/DL (8.8-10.2); CARBON DIOXIDE LEVEL 29 MEQ/L (21-32); CHLORIDE LEVEL 112 MEQ/L (98-107); CREATININE FOR GFR 0.68 MG/DL (0.55-1.30); GLOMERULAR FILTRATION RATE > 60.0 (>45); GLUCOSE, FASTING 98 MG/DL (70-100); POTASSIUM SERUM 3.7 MEQ/L (3.5-5.1); SODIUM LEVEL 143 MEQ/L (136-145); TOTAL PROTEIN 6.9 GM/DL (6.4-8.2)
[2021-06-28] MEDS: ALVIMOPAN 12 MG CAPSULE (ENTEREG) PO SCH (07:48)
[2021-06-28] MEDS: PANTOPRAZOLE 40MG VIAL (C9113 PER 1) IV SCH (07:48)
[2021-06-28 10:00] VITALS: BP 138/84
--- NOTE | 2021-07-02 11:28 | DS.PDOC ---
Discharge Summary General Date of Admission Jun 25, 2021 at 06:55 Date of Discharge 06/28/21 Discharge Summary General surgery. Dr Alfonso PROCEDURES PERFORMED DURING STAY: Laparoscopic right hemicolectomy for cecal mass 06/25/2021 ADMITTING DIAGNOSES: Cecal mass, lesion that is on the cecum/appendiceal base involving the terminal ileum. History of breast cancer/lumpectomy DISCHARGE DIAGNOSES: Cecal mass, status post laparoscopic right colectomy as per Dr Alfonso 06/25/21. History of breast cancer/lumpectomy COMPLICATIONS/CHIEF COMPLAINT: Cecal Mass, Right Colon Mass. HISTORY OF PRESENT ILLNESS: The patient is a 70-year-old female who on evaluation by [facility] found a cystic lesion palpable in the right side of the abdomen, underwent diagnostic laparoscopy with plans for an oophorectomy, however this was not involving the ovary, this was involving the cecum/appendix and the distal ileum. The patient was referred to Dr. Alfonso for removal. In addition, on workup for her preoperative evaluation for her laparoscopy, she was found to have hepatitis C and evidence of cirrhosis without evidence of portal hypertension, no evidence of ascites. HOSPITAL COURSE: The patient was admitted 06/25/2021 for laparoscopic right colectomy. The patient tolerated the procedure well. Postoperatively she had some clear liquids and she did have some nausea but by postoperative day one this had cleared. She reported some flatus but no bowel movement. Briones catheter was removed. She was urinating without difficulty. She was advanced to regular diet, IV fluids were discontinued. She was encouraged to get out of bed and ambulate. DARREL drain remained in place, she was noted to have drainage of some persistent bloody fluid but her platelets were noted to be 84 on admission and this was felt to be also contributing. By postoperative day #2 the patient was reporting loose bowel movements without any blood, no nausea or vomiting and voiding well. By postoperative day #3 the patient was felt stable for discharge. DARREL drain was removed prior to discharge. On the day of discharge hemoglobin was noted to be 11.2, platelets 104. AST 85, ALT 125, serum creatinine 0.68 with GFR greater than 60. The patient was subsequently discharged home with plan for outpatient follow-up in 2 weeks. Pathology was pending at the time of discharge. DISCHARGE MEDICATIONS: Please see below. ALLERGIES: Please see below. PHYSICAL EXAMINATION ON DISCHARGE: VITAL SIGNS: Please see below. GENERAL: No acute distress, alert and oriented HEENT: MMM CARDIOVASCULAR EXAMINATION: RRR RESPIRATORY EXAMINATION: Clear to auscultation ABDOMINAL EXAMINATION: Soft, nontender, incisions clean and dry, DARREL drain is removed EXTREMITIES: No edema LABORATORY DATA: Please see below. IMAGING: AXR IMPRESSION: Surgical drain tip right upper quadrant. Mildly distended air-filled transverse colon. No dilated small bowel loops. <Electronically signed by Sarthak Alvarado > 06/26/21 [id number] DISCHARGE PLAN: Discharge home DISPOSITION: Home, Self-Care. DISCHARGE INSTRUCTIONS: Activity as tolerated, no heavy pushing, pulling, lifting greater than 20 pounds. Regular diet Continue to keep incisions clean and dry, dry dressing daily as needed. Okay to shower, no baths or swimming. Call office with any questions or concerns, wound drainage, fevers, chills or increasing pain The patient was advised she may use Tylenol or ibuprofen as needed for discomfort. Follow-up with Dr. Alfonso's office in 2 weeks ITEMS TO FOLLOWUP ON ON OUTPATIENT: 1. Pathology is pending at the time of discharge DISCHARGE CONDITION: Stable. TIME SPENT ON DISCHARGE: Greater than 30 minutes. Vital Signs/I&Os Vital Signs Date Time Temp Pulse Resp B/P (MAP) Pulse Ox O2 Delivery O2 Flow Rate FiO2 06/28/21 10:00 98.9 74 18 138/84 (102) 95 Room Air 06/26/21 06:00 2.0 Discharge Medications Scheduled Multivit-Minerals/Folic Acid (Multivitamin Gummies) 200 Mcg Tab.chew, 400 MCG PO DAILY, (Reported) Allergies Coded Allergies: No Known Allergies (Unverified , 05/18/21) Magui Millard Jul 02, 2021 11:10
--- NOTE | 2021-07-23 09:37 | RO ---
OPERATIVE NOTE DATE OF OPERATION: 06/25/2021 PREOPERATIVE DIAGNOSIS: Cecal mass. POSTOPERATIVE DIAGNOSIS: Cecal mass. PROCEDURE: Laparoscopic right hemicolectomy. SURGEON: KATIE SAUCEDO JR., MD DRESSED POULTRY GRADER: NAYLA SAINI DO (provided retraction, exposure and assistance with anastomosis. ANESTHESIA: General endotracheal. ESTIMATED BLOOD LOSS: Minimal. FLUIDS: Crystalloid. BRIEF PROCEDURE SUMMARY: The patient was brought to the Operating Room, was given general anesthesia. After adequate anesthesia and preoperative antibiotics were given, patient was prepped and draped in the usual sterile fashion. Next, the supraumbilical incision was made with the skin knife, blunt dissection was carried down to fascia and Veress needle placed into the abdominal cavity and insufflated to 15 mmHg. A dilating 10 mm trocar was placed and under direct visualization a suprapubic left lower quadrant 5 mm trocar was placed and an epigastric 5 mm trocar was placed. The appendix was seen and this was involved in this mass in the cecum and cecum was involving the terminal ileum as well all in the right lower quadrant. Once I was able to mobilize the peritoneum off the iliac crest on the right hand side and then mobilize the white line of Toldt with the harmonic scalpel, I came across the hepatic flexure with harmonic scalpel as well and eventually was able to mobilize the entire colon off the Gerota's fascia posteriorly and then mobilizing off the duodenum and the C-loop of the duodenum and even clearing the omentum off the transverse colon from midline to the hepatic flexure area. Once this was all nicely cleared in this area mobilized nicely, the terminal ileum still needed to be mobilized a little bit more and thus I was able to score the mesentery on the terminal ileum and then once this was performed the mesentery itself was scored going up to the hepatic flexure, there was a small vascular branch, possibly the right hepatic that was going up to the ascending colon/hepatic flexure area that I was able to transect using the [place] 60 vascular load and then also followed the ileocolic vessel back proximally and once I was able to get around this circumferentially quite nicely and both sides of the ileocolic had been cleared up to the terminal ileum on one side and then up to the colon on the other side I transected this using a [place] 60 vascular load. Once this was all nicely transected/mobilized, then a midline incision was made with a skin knife, electrocautery was used to cut through dermis, the underlying subcutaneous tissue down through fascia and the mass was mobilized out of the wound. Once this was mobilized proximally, a NICHO stapler was used to transect the terminal ileum and the hepatic flexure area and then a side to side anastomosis with a NICHO stapler was created. The enterotomy was resected using a NICHO stapler as well. This was returned to the abdominal cavity, copiously irrigated until clear and the incision was closed with a running #1 Vicryl suture. All incisions were closed with ana. A dry sterile dressing was applied. The patient was awakened, extubated and brought to the Recovery Room awake, alert and hemodynamically stable. Sponge and needle counts correct x2.
== END 2021-06-28 13:50 | disposition home or self-care (01) | DRG 331 ==
LOC: M OR 06:55 → M MS5PR 12:35
PROVIDERS: ADMIT Surgery; ATTEND Surgery
PROC: 0DBF4ZZ Excision of Right Large Intestine, Percutaneous Endoscopic Approach (ICD-10-PCS; principal; 2021-06-25 09:15)
DX: C18.1 Malignant neoplasm of appendix (principal); K74.60 Unspecified cirrhosis of liver; B19.20 Unspecified viral hepatitis C without hepatic coma; Z80.3 Family history of malignant neoplasm of breast

== ENCOUNTER → 2021-09-02 | Outpatient (CLI) | payer MEDICARE, OTHER ==
[~2021-09-02] MED LIST changes: +FLAG500T PO; -ceFAZolin SOD 2 GM in IV 1 EA IV ONE
[2021-09-02 14:03] LABS: BASO % 0.8 % (0.0-1.0); EOS # 0.1 10^3/uL (0.0-0.5); EOS % 3.3 % (0.0-3.0); HEMATOCRIT 39.4 % (36.0-47.0); HEMOGLOBIN 12.3 g/dl (12.0-15.5); LYMPH # 1.4 10^3/uL (1.5-5.0); LYMPH % 34.8 % (24.0-44.0); MEAN CORPUSCULAR HEMOGLOBIN 30.4 pg (27.0-33.0); MEAN CORPUSCULAR HGB CONC 31.2 g/dl (32.0-36.5); MEAN CORPUSCULAR VOLUME 97.5 fl (80.0-96.0); MONO # 0.4 10^3/uL (0.0-0.8); MONO % 10.1 % (2.0-8.0); NEUTROPHILS % 50.7 % (36.0-66.0); RED BLOOD COUNT 4.04 10^6/uL (4.00-5.40)
[2021-09-02 14:08] LABS: PLATELET COUNT, AUTOMATED 93 10^3/uL (150-450)
[2021-09-02 14:40] LABS: ALBUMIN 3.7 GM/DL (3.2-5.2); ALT/SGPT 20 U/L (12-78); BILIRUBIN,TOTAL 0.4 MG/DL (0.2-1.0); BLOOD UREA NITROGEN 14 MG/DL (7-18); CALCIUM LEVEL 9.6 MG/DL (8.8-10.2); CARBON DIOXIDE LEVEL 27 MEQ/L (21-32); CHLORIDE LEVEL 107 MEQ/L (98-107); GLOMERULAR FILTRATION RATE > 60.0 (>39); GLUCOSE, FASTING 89 MG/DL (70-100); HEPATITIS B SURFACE ANTIBODY NEGATIVE (POSITIVE); SODIUM LEVEL 140 MEQ/L (136-145); TOTAL PROTEIN 7.7 GM/DL (6.4-8.2)
[2021-09-02 14:50] LABS: HEPATITIS B SURFACE ANTIGEN NEGATIVE (NEGATIVE)
[2021-09-04 00:07] LABS: HEPATITIS A IgG TOTAL Negative (Negative); HEPATITIS B CORE ANTIBODY IGG Negative (Negative); HEPATITIS C QUANTITATION HCV Not Detected IU/mL (.)
== END ==
LOC: M PLALAB 10:37
PROVIDERS: ATTEND Internal Medicine Infectious Disease
DX: B18.2 Chronic viral hepatitis C (principal)
CPT/HCPCS: 36415; 80053; 85025; 85049; 85055; 86704; 86706; 86708; 87340; 87522; G0463

== ENCOUNTER → 2021-11-29 | Outpatient (CLI) | payer MEDICARE | LOC: M RAD 07:15 | PROVIDERS: ATTEND Internal Medicine Gastroenterology | DX: K74.01 Hepatic fibrosis, early fibrosis (principal) ==

== ENCOUNTER → 2021-12-02 | Outpatient (CLI) | payer MEDICARE, OTHER | LOC: M LABSMTC 10:33 | PROVIDERS: ATTEND Anesthesiology | DX: Z01.818 Encounter for other preprocedural examination (principal); Z11.52 Encounter for screening for COVID-19 ==

== ENCOUNTER 2021-12-07 11:10 | Day surgery (SDC) | payer MEDICARE ==
[~2021-12-07] VITALS: Ht 165.1 cm; Wt 64.6 kg
[~2021-12-07 11:10] MED LIST changes: +NS 1,000 ML IV ONE
[2021-12-07] MEDS ORDERED: fentaNYL 100 MCG/2 ML INJECTION As Ordered ONE (12:56)
[2021-12-07] MEDS ORDERED: GLYCOPYRROLATE INJ 0.2 MG/ML 2 ML VIAL As Ordered ONE (12:56)
[2021-12-07] MEDS ORDERED: propofoL 200 MG/20 ML VIAL As Ordered ONE (13:44)
[2021-12-07 14:01] VITALS: BP 138/72
== END 2021-12-07 14:06 | disposition home or self-care (01) ==
LOC: M OPP 11:10
PROVIDERS: ATTEND Internal Medicine Gastroenterology
DX: K57.30 Diverticulosis of large intestine without perforation or abscess without bleeding (principal); K64.8 Other hemorrhoids; Z98.0 Intestinal bypass and anastomosis status; Z85.038 Personal history of other malignant neoplasm of large intestine; Z09 Encounter for follow-up examination after completed treatment for conditions other than malignant neoplasm; Z85.3 Personal history of malignant neoplasm of breast; Z92.3 Personal history of irradiation; D50.9 Iron deficiency anemia, unspecified; K20.91 Esophagitis, unspecified with bleeding
CPT/HCPCS: 43239; 45380; 88305; J3010

== ENCOUNTER → 2022-03-03 | Outpatient (CLI) | payer MEDICARE ==
[~2022-03-03] MED LIST changes: -NS 1,000 ML IV ONE
[2022-03-03 13:31] LABS: BASO % 0.6 % (0.0-1.0); EOS # 0.2 10^3/uL (0.0-0.5); EOS % 4.3 % (0.0-3.0); HEMATOCRIT 40.4 % (36.0-47.0); HEMOGLOBIN 13.2 g/dl (12.0-15.5); LYMPH # 1.3 10^3/uL (1.5-5.0); LYMPH % 37.9 % (24.0-44.0); MEAN CORPUSCULAR HEMOGLOBIN 30.2 pg (27.0-33.0); MEAN CORPUSCULAR HGB CONC 32.7 g/dl (32.0-36.5); MEAN CORPUSCULAR VOLUME 92.4 fl (80.0-96.0); MONO # 0.4 10^3/uL (0.0-0.8); NEUTROPHILS # 1.7 10^3/uL (1.5-8.5); NEUTROPHILS % 46.9 % (36.0-66.0); RED BLOOD COUNT 4.37 10^6/uL (4.00-5.40); WHITE BLOOD COUNT 3.5 10^3/uL (4.0-10.0)
[2022-03-03 13:33] LABS: PLATELET COUNT, AUTOMATED 81 10^3/uL (150-450)
[2022-03-03 13:58] LABS: ALBUMIN 3.7 GM/DL (3.2-5.2); ALT/SGPT 21 U/L (12-78); BILIRUBIN,DIRECT < 0.1 MG/DL (0.0-0.2); BILIRUBIN,TOTAL 0.4 MG/DL (0.2-1.0); TOTAL PROTEIN 7.4 GM/DL (6.4-8.2)
[2022-03-04 17:07] LABS: HEPATITIS C QUANTITATION HCV Not Detected IU/mL (.)
== END ==
LOC: M PLAIMG 10:18 → M PLALAB 10:18
PROVIDERS: ATTEND Internal Medicine Infectious Disease
DX: B18.2 Chronic viral hepatitis C (principal); M35.01 Sjogren syndrome with keratoconjunctivitis

== ENCOUNTER → 2022-03-10 | Outpatient (CLI) | payer MEDICARE ==
[2022-03-10 13:08] LABS: BASO % 0.5 % (0.0-1.0); EOS # 0.2 10^3/uL (0.0-0.5); EOS % 4.7 % (0.0-3.0); HEMATOCRIT 42.6 % (36.0-47.0); HEMOGLOBIN 13.6 g/dl (12.0-15.5); LYMPH # 1.5 10^3/uL (1.5-5.0); LYMPH % 38.6 % (24.0-44.0); MEAN CORPUSCULAR HEMOGLOBIN 29.6 pg (27.0-33.0); MEAN CORPUSCULAR HGB CONC 31.9 g/dl (32.0-36.5); MEAN CORPUSCULAR VOLUME 92.6 fl (80.0-96.0); MONO # 0.4 10^3/uL (0.0-0.8); MONO % 11.4 % (2.0-8.0); NEUTROPHILS # 1.7 10^3/uL (1.5-8.5); NEUTROPHILS % 44.5 % (36.0-66.0); WHITE BLOOD COUNT 3.9 10^3/uL (4.0-10.0)
[2022-03-10 13:09] LABS: PLATELET COUNT, AUTOMATED 84 10^3/uL (150-450)
[2022-03-10 13:19] LABS: ALBUMIN 3.9 GM/DL (3.2-5.2); BILIRUBIN,DIRECT 0.2 MG/DL (0.0-0.2); BILIRUBIN,TOTAL 0.7 MG/DL (0.2-1.0); TOTAL PROTEIN 7.6 GM/DL (6.4-8.2)
[2022-03-11 14:09] LABS: HEPATITIS C QUANTITATION HCV Not Detected IU/mL (.)
== END ==
LOC: M PLALAB 10:46
PROVIDERS: ATTEND Internal Medicine Infectious Disease
DX: B18.2 Chronic viral hepatitis C (principal)

== ENCOUNTER → 2022-03-28 | Outpatient (CLI) | payer MEDICARE | LOC: M WHC 09:58 | PROVIDERS: ATTEND Nurse Practitioner Family | DX: Z12.31 Encounter for screening mammogram for malignant neoplasm of breast (principal); M85.851 Other specified disorders of bone density and structure, right thigh; M85.852 Other specified disorders of bone density and structure, left thigh; M81.0 Age-related osteoporosis without current pathological fracture ==

== ENCOUNTER → 2022-05-24 | Outpatient (CLI) | payer MEDICARE ==
[~2022-05-24] MED LIST changes: +GASTROGRAFIN SOLUTION 30ML (Q9963) As Ordered ONE; +ISOVUE-370 76% 100ML VIAL As Ordered ONE
== END ==
LOC: M RAD 09:26
PROVIDERS: ATTEND Internal Medicine
DX: C18.1 Malignant neoplasm of appendix (principal)
CPT/HCPCS: 71260; 74177; Q9963; Q9967

== ENCOUNTER → 2022-07-06 | Outpatient (CLI) | payer MEDICARE ==
[~2022-07-06] MED LIST changes: -GASTROGRAFIN SOLUTION 30ML (Q9963) As Ordered ONE; -ISOVUE-370 76% 100ML VIAL As Ordered ONE
[2022-07-06 13:16] LABS: BASO % 1.1 % (0.0-1.0); EOS # 0.1 10^3/uL (0.0-0.5); EOS % 3.5 % (0.0-3.0); HEMATOCRIT 42.3 % (36.0-47.0); HEMOGLOBIN 13.7 g/dl (12.0-15.5); LYMPH # 1.4 10^3/uL (1.5-5.0); LYMPH % 37.9 % (24.0-44.0); MEAN CORPUSCULAR HEMOGLOBIN 30.8 pg (27.0-33.0); MEAN CORPUSCULAR HGB CONC 32.4 g/dl (32.0-36.5); MEAN CORPUSCULAR VOLUME 95.1 fl (80.0-96.0); MONO # 0.4 10^3/uL (0.0-0.8); MONO % 9.3 % (2.0-8.0); NEUTROPHILS # 1.8 10^3/uL (1.5-8.5); NEUTROPHILS % 47.9 % (36.0-66.0); RED BLOOD COUNT 4.45 10^6/uL (4.00-5.40); WHITE BLOOD COUNT 3.8 10^3/uL (4.0-10.0)
[2022-07-06 13:18] LABS: PLATELET COUNT, AUTOMATED 84 10^3/uL (150-450)
[2022-07-06 13:57] LABS: ALT/SGPT 25 U/L (12-78); BILIRUBIN,TOTAL 0.5 MG/DL (0.2-1.0); BLOOD UREA NITROGEN 16 MG/DL (7-18); CALCIUM LEVEL 9.4 MG/DL (8.8-10.2); CARBON DIOXIDE LEVEL 29 MEQ/L (21-32); CHLORIDE LEVEL 107 MEQ/L (98-107); CHOLESTEROL LEVEL 189 MG/DL (<200); GLOMERULAR FILTRATION RATE > 60.0 (>39); GLUCOSE, FASTING 83 MG/DL (70-100); HDL CHOLESTEROL 84 MG/DL (>40); LDL CHOLESTEROL 87 MG/DL (<100); NON-HDL-C 105 MG/DL; POTASSIUM SERUM 5.1 MEQ/L (3.5-5.1); SODIUM LEVEL 139 MEQ/L (136-145); TOTAL PROTEIN 7.8 GM/DL (6.4-8.2); TRIGLYCERIDES LEVEL 90 MG/DL (<150)
[2022-07-06 14:21] LABS: HEMOGLOBIN A1c 5.5 %
[2022-07-06 14:32] LABS: TOTAL 25(OH) VITAMIN D 30.2 NG/ML (30.0-100.0)
== END ==
LOC: M PLALAB 11:29
PROVIDERS: ATTEND Nurse Practitioner Family
DX: B18.2 Chronic viral hepatitis C (principal); E78.00 Pure hypercholesterolemia, unspecified

== ENCOUNTER → 2022-07-06 | Outpatient (CLI) | payer MEDICARE | LOC: M PLALAB 11:32 | PROVIDERS: ATTEND Internal Medicine Infectious Disease | DX: B18.2 Chronic viral hepatitis C (principal) ==

== ENCOUNTER → 2023-02-10 | Outpatient (CLI) | payer MEDICARE | LOC: M WHC 08:07 | PROVIDERS: ATTEND Nurse Practitioner Family | DX: B18.2 Chronic viral hepatitis C (principal) ==

== ENCOUNTER → 2023-03-31 | Outpatient (CLI) | payer MEDICARE | LOC: M WHC 08:06 | PROVIDERS: ATTEND Nurse Practitioner Family | DX: Z12.31 Encounter for screening mammogram for malignant neoplasm of breast (principal) ==

== ENCOUNTER → 2023-06-16 | Outpatient (CLI) | payer MEDICARE ==
[~2023-06-16] MED LIST changes: +GASTROGRAFIN SOLUTION 30ML As Ordered ONE; +ISOVUE-370 76% 100ML VIAL As Ordered ONE
== END ==
LOC: M RAD 12:21
PROVIDERS: ATTEND Nurse Practitioner
DX: C18.1 Malignant neoplasm of appendix (principal)
CPT/HCPCS: 71260; 74177; Q9963; Q9967

== ENCOUNTER → 2024-01-10 | Outpatient (CLI) | payer MEDICARE ==
[~2024-01-10] MED LIST changes: -GASTROGRAFIN SOLUTION 30ML As Ordered ONE; +GASTROGRAFIN SOLUTION 30ML ONE; -ISOVUE-370 76% 100ML VIAL As Ordered ONE; +ISOVUE-370 76% 100ML VIAL ONE
== END ==
LOC: M PLAIMG 07:00
PROVIDERS: ATTEND Nurse Practitioner
DX: C18.1 Malignant neoplasm of appendix (principal)
CPT/HCPCS: 71260; 74177; Q9963; Q9967

== ENCOUNTER → 2024-04-01 | Outpatient (CLI) | payer MEDICARE ==
[~2024-04-01] MED LIST changes: -GASTROGRAFIN SOLUTION 30ML ONE; -ISOVUE-370 76% 100ML VIAL ONE
== END ==
LOC: M WHC 09:36
PROVIDERS: ATTEND Nurse Practitioner Family
DX: Z12.31 Encounter for screening mammogram for malignant neoplasm of breast (principal); M81.0 Age-related osteoporosis without current pathological fracture

== ENCOUNTER → 2024-07-16 | Outpatient (CLI) | payer MEDICARE ==
[~2024-07-16] MED LIST changes: +GASTROGRAFIN SOLUTION 30ML As Ordered ONE; +ISOVUE-370 76% 100ML VIAL As Ordered ONE
== END ==
LOC: M RAD 09:27
PROVIDERS: ATTEND Nurse Practitioner
DX: C18.1 Malignant neoplasm of appendix (principal)
CPT/HCPCS: 71260; 74177; Q9963; Q9967

== ENCOUNTER → 2024-07-23 | Outpatient (CLI) | payer MEDICARE ==
[~2024-07-23] MED LIST changes: -GASTROGRAFIN SOLUTION 30ML As Ordered ONE; -ISOVUE-370 76% 100ML VIAL As Ordered ONE
[2024-07-23 15:18] LABS: BASO % 0.7 % (0.0-1.0); EOS # 0.1 10^3/uL (0.0-0.5); EOS % 3.1 % (0.0-3.0); HEMATOCRIT 42.2 % (36.0-47.0); HEMOGLOBIN 13.8 g/dl (12.0-15.5); LYMPH # 1.2 10^3/uL (1.5-5.0); LYMPH % 26.1 % (24.0-44.0); MEAN CORPUSCULAR HEMOGLOBIN 31.4 pg (27.0-33.0); MEAN CORPUSCULAR HGB CONC 32.7 g/dl (32.0-36.5); MEAN CORPUSCULAR VOLUME 95.9 fl (80.0-96.0); MONO # 0.4 10^3/uL (0.0-0.8); MONO % 7.7 % (2.0-8.0); NEUTROPHILS # 2.8 10^3/uL (1.5-8.5); NEUTROPHILS % 62.2 % (36.0-66.0); PLATELET COUNT, AUTOMATED 115 10^3/uL (150-450); WHITE BLOOD COUNT 4.5 10^3/uL (4.0-10.0)
[2024-07-23 15:30] LABS: HEMOGLOBIN A1c 5.3 % (4.0-6.0)
[2024-07-23 15:52] LABS: ALBUMIN 4.1 G/DL (3.2-5.2); ALKALINE PHOSPHATASE 70 U/L (46-116); ALT/SGPT 19 U/L (7.0-40); AST/SGOT 18 U/L (<34); BILIRUBIN,TOTAL 0.5 MG/DL (0.3-1.2); BLOOD UREA NITROGEN 11 MG/DL (9-23); CALCIUM LEVEL 9.9 MG/DL (8.3-10.6); CARBON DIOXIDE LEVEL 29 MMOL/L (20-31); CHLORIDE LEVEL 107 MMOL/L (98-107); CHOLESTEROL LEVEL 182 MG/DL (<200); CREATININE FOR GFR 0.81 MG/DL (0.55-1.30); GLOMERULAR FILTRATION RATE > 60.0 (>39); GLUCOSE, FASTING 93 MG/DL (74-106); HDL CHOLESTEROL 64.8 MG/DL (>40); LDL CHOLESTEROL 88.2 MG/DL (<100); NON-HDL-C 117.2 MG/DL; POTASSIUM SERUM 5.5 MMOL/L (3.5-5.1); SODIUM LEVEL 139 MMOL/L (136-145); TOTAL PROTEIN 7.4 G/DL (5.7-8.2); TRIGLYCERIDES LEVEL 145 MG/DL (<150)
== END ==
LOC: M PLALAB 11:29
PROVIDERS: ATTEND Nurse Practitioner Family
DX: E55.9 Vitamin D deficiency, unspecified (principal); I10 Essential (primary) hypertension; R73.01 Impaired fasting glucose; Z13.220 Encounter for screening for lipoid disorders; D69.6 Thrombocytopenia, unspecified

== ENCOUNTER → 2024-07-23 | Outpatient (CLI) | payer MEDICARE ==
[2024-07-23 15:19] LABS: BASO % 0.7 % (0.0-1.0); EOS # 0.2 10^3/uL (0.0-0.5); EOS % 3.7 % (0.0-3.0); HEMATOCRIT 41.9 % (36.0-47.0); HEMOGLOBIN 13.8 g/dl (12.0-15.5); LYMPH # 1.2 10^3/uL (1.5-5.0); LYMPH % 26.8 % (24.0-44.0); MEAN CORPUSCULAR HEMOGLOBIN 31.7 pg (27.0-33.0); MEAN CORPUSCULAR HGB CONC 32.9 g/dl (32.0-36.5); MEAN CORPUSCULAR VOLUME 96.3 fl (80.0-96.0); MONO # 0.3 10^3/uL (0.0-0.8); MONO % 7.5 % (2.0-8.0); NEUTROPHILS # 2.6 10^3/uL (1.5-8.5); NEUTROPHILS % 61.1 % (36.0-66.0); PLATELET COUNT, AUTOMATED 109 10^3/uL (150-450); RED BLOOD COUNT 4.35 10^6/uL (4.00-5.40); WHITE BLOOD COUNT 4.3 10^3/uL (4.0-10.0)
[2024-07-23 15:30] LABS: HEMOGLOBIN A1c 5.2 % (4.0-6.0)
[2024-07-23 15:51] LABS: C REACTIVE PROTEIN QUANTITATIV < 0.40 MG/DL (<1.0)
[2024-07-23 15:52] LABS: ALBUMIN 4.2 G/DL (3.2-5.2); ALKALINE PHOSPHATASE 70 U/L (46-116); ALT/SGPT 19 U/L (7.0-40); AST/SGOT 19 U/L (<34); BILIRUBIN,DIRECT 0.2 MG/DL (<0.4); BILIRUBIN,TOTAL 0.5 MG/DL (0.3-1.2); BLOOD UREA NITROGEN 12 MG/DL (9-23); CALCIUM LEVEL 9.7 MG/DL (8.3-10.6); CARBON DIOXIDE LEVEL 30 MMOL/L (20-31); CHLORIDE LEVEL 107 MMOL/L (98-107); CHOLESTEROL LEVEL 185 MG/DL (<200); GLOMERULAR FILTRATION RATE > 60.0 (>39); GLUCOSE, FASTING 92 MG/DL (74-106); HDL CHOLESTEROL 65.9 MG/DL (>40); LDL CHOLESTEROL 89.7 MG/DL (<100); NON-HDL-C 119.1 MG/DL; PHOSPHORUS LEVEL 3.6 MG/DL (2.4-5.1); POTASSIUM SERUM 4.3 MMOL/L (3.5-5.1); SODIUM LEVEL 139 MMOL/L (136-145); THYROXINE (T4) 6.5 UG/DL (4.5-10.9); TOTAL PROTEIN 7.6 G/DL (5.7-8.2); TRIGLYCERIDES LEVEL 147 MG/DL (<150)
[2024-07-23 15:53] LABS: THYROID STIMULATING HORMONE 1.547 uIU/ML (0.55-4.78)
== END ==
LOC: M PLALAB 11:26
PROVIDERS: ATTEND Nurse Practitioner Family
DX: E66.89 Other obesity not elsewhere classified (principal); E55.9 Vitamin D deficiency, unspecified; I10 Essential (primary) hypertension; R73.01 Impaired fasting glucose; D69.6 Thrombocytopenia, unspecified; Z13.220 Encounter for screening for lipoid disorders

== ENCOUNTER → 2025-01-20 | Outpatient (CLI) | payer MEDICARE ==
[~2025-01-20] MED LIST changes: +ISOVUE-370 76% 100ML VIAL As Ordered ONE
== END ==
LOC: M RAD 13:13
PROVIDERS: ATTEND Dietitian, Registered
DX: K57.30 Diverticulosis of large intestine without perforation or abscess without bleeding (principal); K43.9 Ventral hernia without obstruction or gangrene; J98.11 Atelectasis; Z85.038 Personal history of other malignant neoplasm of large intestine
CPT/HCPCS: 71260; 74177; Q9967

== ENCOUNTER → 2025-01-27 | Outpatient (CLI) | payer MEDICARE ==
[~2025-01-27] MED LIST changes: -ISOVUE-370 76% 100ML VIAL As Ordered ONE
[2025-01-27 10:11] LABS: INR 0.94; PARTIAL THROMBOPLASTIN TIME 26.4 SECONDS (24.8-34.2); PROTHROMBIN TIME 12.9 SECONDS (12.5-14.5)
[2025-01-27 10:12] LABS: PLATELET COUNT, AUTOMATED 109 10^3/uL (150-450)
[2025-01-27 11:12] LABS: COLLAGEN EPINEPHRINE 105 SECONDS (74-162)
== END ==
LOC: M PLALAB 09:09
PROVIDERS: ATTEND Orthopaedic Surgery
DX: Z01.818 Encounter for other preprocedural examination (principal)

== ENCOUNTER → 2025-01-27 | Outpatient (CLI) | payer MEDICARE ==
[2025-01-27 10:14] LABS: BASO % 0.5 % (0.0-1.0); EOS # 0.2 10^3/uL (0.0-0.5); EOS % 3.5 % (0.0-3.0); HEMATOCRIT 44.5 % (36.0-47.0); HEMOGLOBIN 14.5 g/dl (12.0-15.5); LYMPH # 1.2 10^3/uL (1.5-5.0); LYMPH % 21.1 % (24.0-44.0); MEAN CORPUSCULAR HGB CONC 32.6 g/dl (32.0-36.5); MEAN CORPUSCULAR VOLUME 95.3 fl (80.0-96.0); MONO # 0.5 10^3/uL (0.0-0.8); MONO % 9.2 % (2.0-8.0); NEUTROPHILS # 3.8 10^3/uL (1.5-8.5); NEUTROPHILS % 65.2 % (36.0-66.0); PLATELET COUNT, AUTOMATED 108 10^3/uL (150-450); RED BLOOD COUNT 4.67 10^6/uL (4.00-5.40); WHITE BLOOD COUNT 5.8 10^3/uL (4.0-10.0)
[2025-01-27 10:39] LABS: ALBUMIN 3.9 G/DL (3.2-5.2); BILIRUBIN,TOTAL 0.7 MG/DL (0.3-1.2); CALCIUM LEVEL 9.2 MG/DL (8.3-10.6); CHOLESTEROL RISK RATIO 2.68 (<5); CREATININE FOR GFR 0.9 MG/DL (0.55-1.30); GLOMERULAR FILTRATION RATE 67.5 (>39); HDL CHOLESTEROL 63.2 MG/DL (>40); LDL CHOLESTEROL 86.6 MG/DL (<100); MAGNESIUM LEVEL 2.3 MG/DL (1.8-2.4); NON-HDL-C 106.8 MG/DL; POTASSIUM SERUM 4.2 MMOL/L (3.5-5.1); TOTAL PROTEIN 7.1 G/DL (5.7-8.2)
== END ==
LOC: M PLALAB 09:07
PROVIDERS: ATTEND Nurse Practitioner Family
DX: Z00.00 Encounter for general adult medical examination without abnormal findings (principal); I10 Essential (primary) hypertension; B18.2 Chronic viral hepatitis C; E55.9 Vitamin D deficiency, unspecified; R73.01 Impaired fasting glucose; Z13.220 Encounter for screening for lipoid disorders

== ENCOUNTER → 2025-02-24 | Outpatient (REF) | payer MEDICARE ==
[2025-02-24 13:44] LABS: APPEARANCE, URINE CLEAR (CLEAR); BACTERIA, URINE AUTO NEGATIVE (NEGATIVE); BILIRUBIN, URINE AUTO NEGATIVE (NEGATIVE); BLOOD, URINE BLOOD NEGATIVE (NEGATIVE); COLOR, URINE STRAW (YELLOW); GLUCOSE, URINE (UA) AUTO NEGATIVE (NEGATIVE); KETONE, URINE AUTO NEGATIVE (NEGATIVE); LEUKOCYTE ESTERASE, URINE AUTO TRACE (NEGATIVE); NITRITE, URINE AUTO NEGATIVE (NEGATIVE); PROTEIN, URINE AUTO NEGATIVE (NEGATIVE); RBC, URINE AUTO 0 /HPF (0-3); SPECIFIC GRAVITY URINE AUTO 1.004 (1.002-1.035); SQUAMOUS EPITHELIAL CELL UR AU 2 /HPF (0-6); UROBILINOGEN, URINE AUTO 0.2 mg/dL (0.0-2.0); WBC, URINE AUTO 0 /HPF (0-3)
== END ==
LOC: M SFHCPLAZ 12:43
PROVIDERS: ATTEND Nurse Practitioner Family
DX: R39.9 Unspecified symptoms and signs involving the genitourinary system (principal)

== ENCOUNTER → 2025-06-02 | Outpatient (CLI) | payer MEDICARE | LOC: M EKG 08:10 | PROVIDERS: ATTEND Registered Nurse | DX: I49.9 Cardiac arrhythmia, unspecified (principal) ==

== ENCOUNTER → 2025-06-06 | Outpatient (CLI) | payer MEDICARE | LOC: M WHC 08:57 | PROVIDERS: ATTEND Nurse Practitioner Family | DX: Z12.31 Encounter for screening mammogram for malignant neoplasm of breast (principal) ==

== ENCOUNTER 2025-06-12 07:35 | Day surgery (SDC) | payer MEDICARE ==
[~2025-06-12] VITALS: Ht 162.6 cm; Wt 61.3 kg
[2025-06-12 08:48] VITALS: TEMP 98.7
[2025-06-12 09:05] VITALS: BP 145/76; O2SAT 98
== END 2025-06-12 09:07 | disposition home or self-care (01) ==
LOC: M OPP 07:35
PROVIDERS: ATTEND Internal Medicine Gastroenterology
DX: K57.30 Diverticulosis of large intestine without perforation or abscess without bleeding (principal); K64.8 Other hemorrhoids; Z98.0 Intestinal bypass and anastomosis status; Z85.038 Personal history of other malignant neoplasm of large intestine; Z79.899 Other long term (current) drug therapy

== ENCOUNTER → 2025-07-14 | Outpatient (CLI) | payer MEDICARE ==
[~2025-07-14] MED LIST changes: +ISOVUE-370 76% 100 ML VIAL ONE
== END ==
LOC: M PLAIMG 15:09
PROVIDERS: ATTEND Dietitian, Registered
DX: C18.1 Malignant neoplasm of appendix (principal); R91.1 Solitary pulmonary nodule; D18.09 Hemangioma of other sites; J98.11 Atelectasis; K57.30 Diverticulosis of large intestine without perforation or abscess without bleeding
CPT/HCPCS: 71260; 74177; Q9967

== ENCOUNTER → 2025-09-05 | Outpatient (CLI) | payer MEDICARE ==
[~2025-09-05] MED LIST changes: -ISOVUE-370 76% 100 ML VIAL ONE
== END ==
LOC: M CARPUL 09:06
PROVIDERS: ATTEND Registered Nurse
DX: R94.31 Abnormal electrocardiogram [ECG] [EKG] (principal)

== ENCOUNTER → 2025-10-06 | Outpatient (CLI) | payer MEDICARE ==
[2025-10-06 14:41] LABS: CALCIUM LEVEL 9.3 MG/DL (8.3-10.6); CARBON DIOXIDE LEVEL 29.0 MMOL/L (20-31); CHLORIDE LEVEL 105.0 MMOL/L (98-107); CREATININE FOR GFR 0.82 MG/DL (0.55-1.30); GLOMERULAR FILTRATION RATE 75.0 (>39); MAGNESIUM LEVEL 2.3 MG/DL (1.8-2.4); POTASSIUM SERUM 5.4 MMOL/L (3.5-5.1); SODIUM LEVEL 140.0 MMOL/L (136-145)
== END ==
LOC: M PLALAB 11:14
PROVIDERS: ATTEND Nurse Practitioner Family
DX: I10 Essential (primary) hypertension (principal)